=== PATIENT | female | born 1990 | race Caucasian/White ===

== ENCOUNTER 2017-11-06 15:49 | Outpatient (CLI) | payer MEDICAID | END 2017-11-06 15:50 | disposition home or self-care (01) | LOC: BICULT 15:49 | DX: M79.621 Pain in right upper arm (principal) ==

== ENCOUNTER 2018-01-21 04:24 | Emergency (ER) | payer OTHER ==
[2018-01-21] MEDS ORDERED: cefTRIAXone\\ROCEPHIN 1 GM VIAL ONE (04:51)
[2018-01-21] MEDS ORDERED: HYDROcodone/Acetaminophen 5/325 mg Tablet ONE (04:51)
[2018-01-21] MEDS ORDERED: Lidocaine 1% PF 5 ML VIAL ONE (04:53)
== END 2018-01-21 05:37 | disposition home or self-care (01) ==
LOC: SCSER 04:24
DX: L03.116 Cellulitis of left lower limb (principal); D50.0 Iron deficiency anemia secondary to blood loss (chronic); J45.909 Unspecified asthma, uncomplicated; F41.9 Anxiety disorder, unspecified; F17.210 Nicotine dependence, cigarettes, uncomplicated
CPT/HCPCS: 96372; J0696; J2001